=== PATIENT | female | born 1930 | race Caucasian/White ===

== ENCOUNTER 2017-08-18 17:37 | Inpatient (IN) ==
[2017-08-18] MEDS ORDERED: SODIUM CHLORIDE 0.9% 1,000 ML IV STA (19:54)
[2017-08-18 20:37] LABS: Basophils # 0.1 10*3/uL (0.0-0.2); Basophils % 0.8 % (0.0-0.8); Eosinophils % 0.3 % (0.00-10.9); Hematocrit 31.8 VOL% (35.7-47.0); Hemoglobin 11.2 GM/DL (12.0-16.0); Immature Granulocytes % 1.8 %; Immature Granulocytes Absolute 0.14 #; Lymphocytes % 13.6 % (21.3-54.2); Mean Corpuscular HGB Conc 35.2 GM/DL (32-36); Mean Corpuscular Hemoglobin 37 PG (27-34); Mean Platelet Volume 9.6 FL (9.6-12.0); Monocytes # 0.8 10*3/uL (0.11-0.8); Monocytes % 10.7 % (1.7-12.7); NRBC # 0.02 10*3/uL; Neutrophils # 5.5 10*3/uL (1.4-7.4); Neutrophils % 72.8 % (38.7-73.9); Platelet Count 181 T/CUMM (130-400); Red Cell Distribution Width 12.3 % (9.3-17.3); White Blood Count 7.6 T/CUMM (4-12)
[2017-08-18 20:53] LABS: INR 2.4; Partial Thromboplastin Time 32.9 SECS (0-40)
[2017-08-18 20:57] LABS: PT Patient Result 24.7 SECS
[2017-08-18 21:13] LABS: Albumin 2.9 G/DL (3.4-5.0); Bilirubin,Total 1.1 MG/DL (0.2-1.0); Calcium 8.9 MG/DL (8.5-10.1); Osmolality,Calculated 268.2 MOS/KG (273-304); Potassium 3.6 MMOL/L (3.5-5.1); Thyroid Stimulating Hormone 2.79 uIU/ml (0.358-3.74); Total Protein 6.6 G/DL (6.4-8.3); Troponin I Only 0.187 NG/ML (0.00-0.045)
[2017-08-18] MEDS ORDERED: ASPIRIN CHEW 81 MG TABLET PO STA (21:35)
[2017-08-18] MEDS ORDERED: ASPIRIN 325 MG TABLET ONE (21:45)
[2017-08-18 22:35] LABS: Apearance,Urine CLEAR (Clear); Bilirubin,Urine Negative (Negative); Blood, Urine Negative (Negative); Glucose,Urine (UA) Negative (Negative); Ketones,Urine Negative (Negative); Mucus,Urine Occasional /LPF (Occasional); Nitrite,Urine Negative (Negative); Protein,Urine 30 MG/DL; RBC,Urine 1 /HPF (0-4); Squamous Epithelial Cell,Urine Occasional /HPF (0-10); Urine Color Straw (Yellow); Urine Specific Gravity 1.009 (1.001-1.035); Urine Urobilinogen < 2.0 EU/DL (0.2-1.0); WBC,Urine 1 /HPF (0-6)
[2017-08-18] MEDS ORDERED: ONDANSETRON 4 MG/2 ML VIAL IV PRN (23:59)
[2017-08-19] MEDS ORDERED: FUROSEMIDE 20 MG/2 ML VIAL IV ONE (01:00)
[2017-08-19 05:38] LABS: Basophils # 0.1 10*3/uL (0.0-0.2); Basophils % 1.2 % (0.0-0.8); Eosinophils % 0.5 % (0.00-10.9); Hematocrit 31.4 VOL% (35.7-47.0); Hemoglobin 10.7 GM/DL (12.0-16.0); Immature Granulocytes % 3.4 %; Lymphocytes # 0.8 10*3/uL (1.4-4.0); Lymphocytes % 13.9 % (21.3-54.2); Mean Corpuscular HGB Conc 34.1 GM/DL (32-36); Mean Corpuscular Hemoglobin 36 PG (27-34); Mean Corpuscular Volume 106.8 FL (87-102); Mean Platelet Volume 9.6 FL (9.6-12.0); Monocytes # 0.6 10*3/uL (0.11-0.8); Monocytes % 10.4 % (1.7-12.7); Neutrophils # 4.1 10*3/uL (1.4-7.4); Neutrophils % 70.6 % (38.7-73.9); Platelet Count 189 T/CUMM (130-400); Red Blood Count 2.94 MC/CUMM (3.8-5.5); Red Cell Distribution Width 12.1 % (9.3-17.3); White Blood Count 5.8 T/CUMM (4-12)
[2017-08-19 06:20] LABS: Albumin 2.7 G/DL (3.4-5.0); Bilirubin,Total 1.5 MG/DL (0.2-1.0); Calcium 8.7 MG/DL (8.5-10.1); Osmolality,Calculated 276.5 MOS/KG (273-304); Potassium 3.5 MMOL/L (3.5-5.1); Risk Ratio 2.65; Total Protein 5.7 G/DL (6.4-8.3); VLDL CHOLESTEROL 26.4 MG/DL
[2017-08-19] MEDS: LEVOTHYROXINE 88 MCG TABLET PO SCH (06:21)
[2017-08-19] MEDS: FUROSEMIDE 20 MG/2 ML VIAL IV SCH ×2 (08:58→16:33)
[2017-08-19] MEDS ORDERED: DIGOXIN 0.125 MG TABLET PO SCH (09:00)
[2017-08-19] MEDS: CARVEDILOL 25 MG TABLET PO SCH ×2 (09:02→20:34)
[2017-08-19] MEDS: POTASSIUM CHLORIDE 10 MEQ TABLET PO SCH (09:02)
[2017-08-19] MEDS: LEFLUNOMIDE 10 MG TABLET PO SCH (09:02)
[2017-08-19] MEDS: NITROFURANTOIN MACROCRYSTALS 50 MG CAPSULE PO SCH (09:03)
[2017-08-19] MEDS: predniSONE 5 MG TABLET PO SCH (09:03)
[2017-08-19 16:27] LABS: % Iron Saturation 10.2 % (18-50); Ferritin 1528.8 ng/ml (8-252)
[2017-08-19] MEDS: WARFARIN 2.5 MG TABLET PO SCH (16:38)
[2017-08-20] MEDS: LEVOTHYROXINE 88 MCG TABLET PO SCH (05:50)
[2017-08-20] MEDS: LEFLUNOMIDE 10 MG TABLET PO SCH (09:38)
[2017-08-20] MEDS: predniSONE 5 MG TABLET PO SCH (09:38)
[2017-08-20] MEDS: CARVEDILOL 25 MG TABLET PO SCH ×2 (09:38→20:55)
[2017-08-20] MEDS: FUROSEMIDE 20 MG/2 ML VIAL IV SCH ×2 (09:39→16:14)
[2017-08-20] MEDS: DIGOXIN 0.125 MG TABLET PO SCH (12:53)
[2017-08-20] MEDS: WARFARIN 2.5 MG TABLET PO SCH (16:13)
[2017-08-21] MEDS: ACETAMINOPHEN 325 MG TABLET PO PRN ×2 (00:30→22:13)
[2017-08-21] MEDS: LEVOTHYROXINE 88 MCG TABLET PO SCH (05:02)
[2017-08-21] MEDS: LEFLUNOMIDE 10 MG TABLET PO SCH (09:11)
[2017-08-21] MEDS: predniSONE 5 MG TABLET PO SCH (09:11)
[2017-08-21] MEDS: FUROSEMIDE 20 MG/2 ML VIAL IV SCH ×2 (09:11→16:12)
[2017-08-21] MEDS: POTASSIUM CHLORIDE 10 MEQ TABLET PO SCH (09:11)
[2017-08-21] MEDS: CARVEDILOL 25 MG TABLET PO SCH ×2 (09:11→22:14)
[2017-08-21 10:53] LABS: Basophils # 0.1 10*3/uL (0.0-0.2); Eosinophils # 0.1 10*3/uL (0.0-0.87); Hematocrit 33.4 VOL% (35.7-47.0); Hemoglobin 11.6 GM/DL (12.0-16.0); Lymphocytes # 0.8 10*3/uL (1.4-4.0); Lymphocytes % 15.5 % (21.3-54.2); Mean Corpuscular HGB Conc 34.7 GM/DL (32-36); Mean Corpuscular Hemoglobin 37 PG (27-34); Mean Platelet Volume 9.6 FL (9.6-12.0); Monocytes # 0.6 10*3/uL (0.11-0.8); Monocytes % 11.2 % (1.7-12.7); Neutrophils # 3.5 10*3/uL (1.4-7.4); Neutrophils % 69.3 % (38.7-73.9); Platelet Count 224 T/CUMM (130-400); Red Blood Count 3.15 MC/CUMM (3.8-5.5)
[2017-08-21 11:04] LABS: INR 2.5; PT Patient Result 25.3 SECS
[2017-08-21 11:26] LABS: Calcium 8.9 MG/DL (8.5-10.1); Osmolality,Calculated 267.5 MOS/KG (273-304); Potassium 3.6 MMOL/L (3.5-5.1)
[2017-08-21] MEDS: DIGOXIN 0.125 MG TABLET PO SCH (11:59)
[2017-08-21 15:04] LABS: Folate > 24.0 NG/ML (5.4-24.0); Vitamin B12 > 2000 PG/ML (211-911)
[2017-08-21] MEDS: WARFARIN 2.5 MG TABLET PO SCH (16:13)
[2017-08-22] MEDS: LEVOTHYROXINE 88 MCG TABLET PO SCH (06:11)
[2017-08-22] MEDS: FUROSEMIDE 20 MG/2 ML VIAL IV SCH ×2 (09:11→16:17)
[2017-08-22] MEDS: CARVEDILOL 25 MG TABLET PO SCH ×2 (09:12→21:14)
[2017-08-22] MEDS: NITROFURANTOIN MACROCRYSTALS 50 MG CAPSULE PO SCH ×2 (09:12→09:13)
[2017-08-22] MEDS: predniSONE 5 MG TABLET PO SCH (09:12)
[2017-08-22] MEDS: LEFLUNOMIDE 10 MG TABLET PO SCH (09:12)
[2017-08-22] MEDS: DIGOXIN 0.125 MG TABLET PO SCH (14:25)
[2017-08-22] MEDS: WARFARIN 2.5 MG TABLET PO SCH (16:17)
[2017-08-22] MEDS: ACETAMINOPHEN 325 MG TABLET PO PRN (21:13)
[2017-08-23] MEDS: LEVOTHYROXINE 88 MCG TABLET PO SCH (06:10)
[2017-08-23] MEDS: POTASSIUM CHLORIDE 10 MEQ TABLET PO SCH (09:22)
[2017-08-23] MEDS: CARVEDILOL 25 MG TABLET PO SCH ×2 (09:22→21:12)
[2017-08-23] MEDS: LEFLUNOMIDE 10 MG TABLET PO SCH (09:22)
[2017-08-23] MEDS: NITROFURANTOIN MACROCRYSTALS 50 MG CAPSULE PO SCH ×2 (09:22→09:29)
[2017-08-23] MEDS: predniSONE 5 MG TABLET PO SCH (09:22)
[2017-08-23] MEDS: FUROSEMIDE 20 MG/2 ML VIAL IV SCH ×2 (09:23→16:47)
[2017-08-23 09:31] LABS: INR 2.8
[2017-08-23 09:37] LABS: PT Patient Result 28.9 SECS
[2017-08-23 09:54] LABS: Basophils # 0.1 10*3/uL (0.0-0.2); Basophils % 1.1 % (0.0-0.8); Eosinophils # 0.1 10*3/uL (0.0-0.87); Eosinophils % 1.3 % (0.00-10.9); Hemoglobin 12.3 GM/DL (12.0-16.0); Immature Granulocytes % 3.5 %; Immature Granulocytes Absolute 0.19 #; Lymphocytes % 17.7 % (21.3-54.2); Mean Corpuscular HGB Conc 35.1 GM/DL (32-36); Mean Corpuscular Hemoglobin 37 PG (27-34); Mean Corpuscular Volume 105.4 FL (87-102); Mean Platelet Volume 9.7 FL (9.6-12.0); Monocytes # 0.7 10*3/uL (0.11-0.8); Monocytes % 12.2 % (1.7-12.7); Neutrophils # 3.5 10*3/uL (1.4-7.4); Neutrophils % 64.2 % (38.7-73.9); Platelet Count 240 T/CUMM (130-400); Red Blood Count 3.32 MC/CUMM (3.8-5.5); Red Cell Distribution Width 11.9 % (9.3-17.3); White Blood Count 5.4 T/CUMM (4-12)
[2017-08-23 09:55] LABS: Calcium 8.7 MG/DL (8.5-10.1); Osmolality,Calculated 269.5 MOS/KG (273-304); Potassium 3.3 MMOL/L (3.5-5.1)
[2017-08-23] MEDS: DIGOXIN 0.125 MG TABLET PO SCH (14:07)
[2017-08-23] MEDS: WARFARIN 2.5 MG TABLET PO SCH (16:47)
[2017-08-24] MEDS: LEVOTHYROXINE 88 MCG TABLET PO SCH (05:47)
[2017-08-24] MEDS: CARVEDILOL 25 MG TABLET PO SCH ×2 (09:18→21:28)
[2017-08-24] MEDS: predniSONE 5 MG TABLET PO SCH (09:18)
[2017-08-24] MEDS: FUROSEMIDE 20 MG/2 ML VIAL IV SCH ×2 (09:18→16:47)
[2017-08-24] MEDS: LEFLUNOMIDE 10 MG TABLET PO SCH (09:18)
[2017-08-24] MEDS: NITROFURANTOIN MACROCRYSTALS 50 MG CAPSULE PO SCH (09:18)
[2017-08-24] MEDS: DIGOXIN 0.125 MG TABLET PO SCH (13:43)
[2017-08-24] MEDS: WARFARIN 2.5 MG TABLET PO SCH (16:47)
[2017-08-25] MEDS: LEVOTHYROXINE 88 MCG TABLET PO SCH (06:07)
[2017-08-25] MEDS: FUROSEMIDE 20 MG/2 ML VIAL IV SCH (07:36)
[2017-08-25] MEDS: LEFLUNOMIDE 10 MG TABLET PO SCH (08:38)
[2017-08-25] MEDS: CARVEDILOL 25 MG TABLET PO SCH (08:38)
[2017-08-25] MEDS: predniSONE 5 MG TABLET PO SCH (08:38)
[2017-08-25] MEDS: POTASSIUM CHLORIDE 10 MEQ TABLET PO SCH (08:38)
[2017-08-25] MEDS: NITROFURANTOIN MACROCRYSTALS 50 MG CAPSULE PO SCH (08:39)
[2017-08-25 11:43] VITALS: BP 122/64
[2017-08-25] MEDS: DIGOXIN 0.125 MG TABLET PO SCH (14:30)
== END 2017-08-25 14:57 | disposition swing bed (61) | DRG 292 ==
LOC: N.EDINP 17:37 → N.ED 17:37 → N.TELEN 08-19 00:53
PROVIDERS: ADMIT Hospitalist; ATTEND Hospitalist

== ENCOUNTER 2018-09-03 21:55 | Inpatient (IN) ==
[2018-09-03] MEDS ORDERED: ONDANSETRON 4 MG/2 ML VIAL IV STA (22:42)
[2018-09-03] MEDS ORDERED: FUROSEMIDE 100 MG/10 ML VIAL IV STA (22:42)
[2018-09-03] MEDS ORDERED: ALBUTEROL/IPRATROPIUM 3 ML NEB RESP TX STA (22:42)
[2018-09-03] MEDS ORDERED: CLINDAMYCIN INJ 600 MG in PREMIX 1 EACH IV STA (22:42)
[2018-09-03 22:51] LABS: Basophils % 0.5 % (0.0-0.8); Hematocrit 28.4 VOL% (35.7-47.0); Hemoglobin 9.7 GM/DL (12.0-16.0); Immature Granulocytes % 1.8 %; Immature Granulocytes Absolute 0.15 #; Lymphocytes # 0.7 10*3/uL (1.4-4.0); Lymphocytes % 8.4 % (21.3-54.2); Mean Corpuscular HGB Conc 34.2 GM/DL (32-36); Mean Corpuscular Hemoglobin 39 PG (27-34); Mean Corpuscular Volume 113.6 FL (87-102); Mean Platelet Volume 10.3 FL (9.6-12.0); Monocytes # 0.6 10*3/uL (0.11-0.8); Monocytes % 6.9 % (1.7-12.7); NRBC # 0.04 10*3/uL; Neutrophils # 6.9 10*3/uL (1.4-7.4); Neutrophils % 82.4 % (38.7-73.9); Platelet Count 149 T/CUMM (130-400); Red Cell Distribution Width 14.6 % (9.3-17.3); White Blood Count 8.4 T/CUMM (4-12)
[2018-09-03 23:01] LABS: Uric Acid 7.8 MG/DL (2.6-6.0)
[2018-09-03 23:02] LABS: Albumin 2.4 G/DL (3.4-5.0); Calcium 7.8 MG/DL (8.5-10.1); Osmolality,Calculated 268.2 MOS/KG (273-304); Potassium 3.7 MMOL/L (3.5-5.1); Total Protein 5.3 G/DL (6.4-8.3)
[2018-09-03 23:13] LABS: PT Patient Result 108.4 SECS
[2018-09-03 23:17] LABS: INR 10.2
[2018-09-03] MEDS ORDERED: MAGNESIUM SULF RIDER 2 GM in PREMIX 1 EACH IV PRN (23:30)
[2018-09-03] MEDS ORDERED: NICOTINE 21 MG/24 HR PATCH TRANSDERM PRN (23:30)
[2018-09-03] MEDS ORDERED: MAGNESIUM SULF RIDER 4 GM in PREMIX 1 EACH IV PRN (23:30)
[2018-09-03] MEDS ORDERED: diphenhydrAMINE CAP 25 MG CAPSULE PO PRN (23:30)
[2018-09-03] MEDS ORDERED: ACETAMINOPHEN 325 MG TABLET PO PRN (23:30)
[2018-09-03] MEDS ORDERED: ONDANSETRON 4 MG/2 ML VIAL IV PRN (23:30)
[2018-09-03] MEDS ORDERED: DOCUSATE SODIUM 100 MG CAPSULE PO PRN (23:30)
[2018-09-03] MEDS ORDERED: SODIUM CHLORIDE 0.9% 1,000 ML IV SCH (23:30)
[2018-09-03 23:57] LABS: Apearance,Urine Slightly Hazy (Clear); Bilirubin,Urine Negative (Negative); Blood, Urine Small mg/dL (Negative); Glucose,Urine (UA) Negative (Negative); Ketones,Urine Negative (Negative); Nitrite,Urine Negative (Negative); Protein,Urine Negative; Urine Color Yellow (Yellow); Urine Specific Gravity 1.008 (1.001-1.035); Urine Urobilinogen < 2.0 EU/DL (0.2-1.0)
[2018-09-04] LABS: RBC,Urine 3 /HPF (0-4); Squamous Epithelial Cell,Urine Few /HPF (0-10)
[2018-09-04 02:12] LABS: Platelet Estimate Adequate; Polychromasia Few
[2018-09-04 02:46] LABS: Basophils % 0.5 % (0.0-0.8); Hematocrit 26.8 VOL% (35.7-47.0); Immature Granulocytes % 1.7 %; Immature Granulocytes Absolute 0.15 #; Lymphocytes # 0.8 10*3/uL (1.4-4.0); Lymphocytes % 9.7 % (21.3-54.2); Mean Corpuscular HGB Conc 33.6 GM/DL (32-36); Mean Corpuscular Hemoglobin 39 PG (27-34); Mean Corpuscular Volume 114.5 FL (87-102); Mean Platelet Volume 10.3 FL (9.6-12.0); Monocytes # 0.5 10*3/uL (0.11-0.8); Monocytes % 5.6 % (1.7-12.7); Neutrophils # 7.2 10*3/uL (1.4-7.4); Neutrophils % 82.5 % (38.7-73.9); Platelet Count 129 T/CUMM (130-400); Red Blood Count 2.34 MC/CUMM (3.8-5.5); Red Cell Distribution Width 14.8 % (9.3-17.3); White Blood Count 8.7 T/CUMM (4-12)
[2018-09-04 03:06] LABS: Albumin 2.2 G/DL (3.4-5.0); Bilirubin,Total 1.1 MG/DL (0.2-1.0); Calcium 7.8 MG/DL (8.5-10.1); INR 10.4; Osmolality,Calculated 265.4 MOS/KG (273-304); Potassium 3.7 MMOL/L (3.5-5.1)
[2018-09-04 03:42] LABS: Hypochromasia Slight; Platelet Estimate Decreased
[2018-09-04] MEDS ORDERED: PHYTONADIONE 5 MG/5 ML ORAL.SYR PO STA (06:04)
[2018-09-04] MEDS: CLINDAMYCIN INJ 600 MG in PREMIX 1 EACH IV SCH ×2 (06:45→21:01)
[2018-09-04] MEDS: LEVOTHYROXINE 88 MCG TABLET PO SCH (06:45)
[2018-09-04] MEDS ORDERED: FUROSEMIDE 40 MG/4 ML VIAL IV ONE (06:50)
[2018-09-04] MEDS ORDERED: DIGOXIN 0.125 MG TABLET PO SCH (09:00)
[2018-09-04] MEDS: PANTOPRAZOLE 40 MG TABLET PO SCH (09:00)
[2018-09-04] MEDS: LEFLUNOMIDE 10 MG TABLET PO SCH (09:00)
[2018-09-04] MEDS: CARVEDILOL 25 MG TABLET PO SCH ×2 (09:00→21:01)
[2018-09-04] MEDS: LISINOPRIL 10 MG TABLET PO SCH ×2 (09:00→21:01)
[2018-09-04] MEDS: GABAPENTIN 300 MG CAPSULE PO SCH (09:00)
[2018-09-04] MEDS: predniSONE 5 MG TABLET PO SCH (09:00)
[2018-09-04 11:26] LABS: PT Patient Result 124.7 SECS
[2018-09-04 11:32] LABS: INR 11.7
[2018-09-04] MEDS ORDERED: PHYTONADIONE 5 MG/5 ML ORAL.SYR PO ONE ×2 (11:49→18:41)
[2018-09-04] MEDS ORDERED: PHYTONADIONE 10 MG/1 ML AMP IV ONE (12:15)
[2018-09-04 19:49] LABS: INR 4.6
[2018-09-04 19:50] LABS: PT Patient Result 49.8 SECS
[2018-09-05] MEDS: CLINDAMYCIN INJ 600 MG in PREMIX 1 EACH IV SCH ×3 (05:00→20:58)
[2018-09-05 05:08] LABS: Basophils % 0.6 % (0.0-0.8); Hemoglobin 8.6 GM/DL (12.0-16.0); Immature Granulocytes % 1.7 %; Immature Granulocytes Absolute 0.11 #; Lymphocytes # 0.7 10*3/uL (1.4-4.0); Mean Corpuscular HGB Conc 33.1 GM/DL (32-36); Mean Corpuscular Hemoglobin 38 PG (27-34); Mean Platelet Volume 10.3 FL (9.6-12.0); Monocytes # 0.7 10*3/uL (0.11-0.8); Monocytes % 10.7 % (1.7-12.7); NRBC # 0.02 10*3/uL; Neutrophils # 4.8 10*3/uL (1.4-7.4); Platelet Count 129 T/CUMM (130-400); Red Blood Count 2.26 MC/CUMM (3.8-5.5); Red Cell Distribution Width 15.3 % (9.3-17.3); White Blood Count 6.3 T/CUMM (4-12)
[2018-09-05 05:19] LABS: Calcium 7.8 MG/DL (8.5-10.1); Osmolality,Calculated 266.4 MOS/KG (273-304); Potassium 3.4 MMOL/L (3.5-5.1)
[2018-09-05 05:29] LABS: Hypochromasia 1+; Ovalocytes Slight; Platelet Estimate Normal
[2018-09-05] MEDS: LEVOTHYROXINE 88 MCG TABLET PO SCH (06:00)
[2018-09-05] MEDS ORDERED: POTASSIUM CHLORIDE 20 MEQ TABLET PO ONE (07:22)
[2018-09-05 08:25] LABS: INR 1.5; PT Patient Result 16.5 SECS
[2018-09-05] MEDS ORDERED: FUROSEMIDE 40 MG/4 ML VIAL IV SCH (09:00)
[2018-09-05] MEDS ORDERED: POTASSIUM CHLORIDE 10 MEQ TABLET PO SCH (09:00)
[2018-09-05] MEDS: predniSONE 5 MG TABLET PO SCH (09:08)
[2018-09-05] MEDS: CARVEDILOL 25 MG TABLET PO SCH ×2 (09:08→20:58)
[2018-09-05] MEDS: GABAPENTIN 300 MG CAPSULE PO SCH (09:08)
[2018-09-05] MEDS: ASPIRIN EC 81 MG TABLET PO SCH (09:08)
[2018-09-05] MEDS: LEFLUNOMIDE 10 MG TABLET PO SCH (09:08)
[2018-09-05] MEDS: LISINOPRIL 10 MG TABLET PO SCH ×2 (09:08→20:57)
[2018-09-05] MEDS: PANTOPRAZOLE 40 MG TABLET PO SCH (09:08)
[2018-09-06] MEDS: CLINDAMYCIN INJ 600 MG in PREMIX 1 EACH IV SCH ×2 (05:20→13:20)
[2018-09-06] MEDS: LEVOTHYROXINE 88 MCG TABLET PO SCH (06:41)
[2018-09-06] MEDS ORDERED: FUROSEMIDE 40 MG TABLET PO SCH (09:00)
[2018-09-06] MEDS: ASPIRIN EC 81 MG TABLET PO SCH (09:30)
[2018-09-06] MEDS: CARVEDILOL 25 MG TABLET PO SCH (09:30)
[2018-09-06] MEDS: GABAPENTIN 300 MG CAPSULE PO SCH (09:30)
[2018-09-06] MEDS: PANTOPRAZOLE 40 MG TABLET PO SCH (09:30)
[2018-09-06] MEDS: LISINOPRIL 10 MG TABLET PO SCH (09:30)
[2018-09-06] MEDS: LEFLUNOMIDE 10 MG TABLET PO SCH (09:30)
[2018-09-06] MEDS: predniSONE 5 MG TABLET PO SCH (09:30)
[2018-09-06] MEDS ORDERED: fentaNYL 12 MCG/HR PATCH TRANSDERM SCH (10:00)
[2018-09-06] MEDS ORDERED: POTASSIUM CHLORIDE 10 MEQ TABLET PO ONE (12:38)
[2018-09-06 13:59] VITALS: BP 129/64
== END 2018-09-06 15:48 | disposition home health service (06) | DRG 602 ==
LOC: EDUNIT# → EDBD → N.ED 21:55 → N.EDINP 23:30 → N.5E 09-04 00:54
PROVIDERS: ADMIT Internal Medicine; ATTEND Internal Medicine